=== PATIENT | female | born 1975 | race Caucasian/White ===

== ENCOUNTER 2017-12-26 12:20 | Emergency (ER) | payer MEDICAID ==
[2017-12-26] MEDS: KETOROLAC 30 MG INJ IM (13:58)
[2017-12-26] MEDS: PROCHLORPERAZINE 10 MG INJ IM (13:58)
== END 2017-12-26 14:30 | disposition home or self-care (01) ==
LOC: FTE 14:30
DX: M54.2 Cervicalgia (principal); G43.009 Migraine without aura, not intractable, without status migrainosus; R40.2412 Glasgow coma scale score 13-15, at arrival to emergency department
CPT/HCPCS: 81025; 96372; 99284-25